=== PATIENT | male | born 1965 | race Caucasian/White ===

== ENCOUNTER 2017-05-16 20:23 | Inpatient (IN) | payer MEDICAID, OTHER ==
[2017-05-16 20:23] VITALS: BMI 21.5
[2017-05-16] MEDS ORDERED: Sodium Chloride 0.9% 1,000 ML IV SCH ×2 (21:15→22:45)
[2017-05-16] MEDS ORDERED: Piperacillin/Tazobact 3.375 GM in Sodium Chloride 0.9% 100 ML IV STA (21:16)
--- NOTE | 2017-05-16 21:32 | ED PDOC ---
HPI: General Adult Time Seen by Provider: 05/16/17 20:57 Chief Complaint (Nursing): ENT Problem Chief Complaint (Provider): Nose infection History Per: Patient History/Exam Limitations: no limitations Onset/Duration Of Symptoms: Days (2 weeks) Have you had recent travel within the past 21 days to any of the following countries: [place], [place], [place] or [place]?: No Current Symptoms Are (Timing): Still Present Additional Complaint(s): For 2 weeks pt. noted an itch on forehead, lower lip left, left nostril. He has been itching it and developed pain and numbness to the area. Pt. neighbor saw him and noted part of nostril missing on left. Has diabetes and takes oral meds for it. Past Medical History Reviewed: Nursing Documentation, Vital Signs Vital Signs: Last Vital Signs Temp 99.6 F 05/16/17 20:39 Pulse 97 H 05/16/17 22:06 Resp 19 05/16/17 22:06 BP 156/78 H 05/16/17 22:06 Pulse Ox 98 05/16/17 22:06 - Medical History PMH: Anemia, Diabetes, HTN Denies: HIV, Chronic Kidney Disease - Surgical History Other surgeries: b/l bka amputations - Family History Family History: States: Unknown Family Hx - Living Arrangements Living Arrangements: Alone - Social History Current smoker - smoking cessation education provided: No Alcohol: None Drugs: Denies - Home Medications Home Medications: Ambulatory Orders Medication Instructions Recorded Aspirin [Ecotrin] 81 mg PO DAILY 05/16/17 Enalapril Maleate [Vasotec] 20 mg PO BID 05/16/17 MetFORMIN [glucoPHAGE] 1,000 mg PO BID 05/16/17 - Allergies Allergies/Adverse Reactions: Allergies Allergy/AdvReac Type Severity Reaction Status Date / Time No Known Allergies Allergy Verified 09/05/15 14:40 Review of Systems ROS Statement: Except As Marked, All Systems Reviewed And Found Negative Constitutional: Positive for: Fever ENT: Positive for: Nose Pain, Nose Discharge, Mouth Pain Neurological: Positive for: Numbness, Headache Physical Exam - Reviewed Nursing Documentation Reviewed: Yes Vital Signs Reviewed: Yes - Physical Exam Appears: Positive for: No Acute Distress Head Exam: Positive for: ATRAUMATIC. Negative for: NORMAL INSPECTION (left scap with 2 ulcerations 2cm diameter and 1cm diameter; tender; no fluctuance) Skin: Positive for: Normal Color, Warm, DRY Eye Exam: Positive for: EOMI, Normal appearance, PERRL ENT: Positive for: Nasal Congestion, Other (L nostril missing; erythema of nose ; purulent dc noted internal of nose L; left lower lip ulcerated and missing; younger yellow dc; tender mild) Neck: Positive for: Normal, Painless ROM Cardiovascular/Chest: Positive for: Regular Rate, Rhythm Respiratory: Positive for: CNT, Normal Breath Sounds Gastrointestinal/Abdominal: Positive for: Normal Exam, Bowel Sounds, Soft. Negative for: Tenderness Back: Positive for: Normal Inspection. Negative for: L CVA Tenderness, R CVA Tenderness Extremity: Positive for: Other (b/l bka). Negative for: Pedal Edema Neurologic/Psych: Positive for: Alert, Oriented - Laboratory Results Result Diagrams: 05/16/17 21:54 05/16/17 21:54 Interpretation Of Abn Labs: 12.9 wbc, 2.3 lactate - ECG ECG: Positive for: Interpreted By Me, Viewed By Me ECG Rhythm: Positive for: Normal QRS, Normal ST Segment, Sinus Rhythm O2 Sat by Pulse Oximetry: 99 Pulse Ox Interpretation: Normal - Radiology X-Ray: Interpreted by Me, Viewed By Me X-Ray Interpretation: No Acute Disease - Progress ED Course And Treament: 2314: Stable. Spoke with Dr. French. Will admit for IV antibiotics and further eval/tx. 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 This is because of the severity of symptoms shown, intensity of services needed, and/or the medical risk in this patient being treated as an outpatient.
[2017-05-16 21:47] LABS: VENOUS BLOOD GAS BASE EXCESS 1.5 mmol/L (0.0-2.0); VENOUS BLOOD GAS PCO2 39 mmHg (40-60); VENOUS BLOOD GAS PO2 52 mm/Hg (30-55); VENOUS BLOOD PH 7.43 (7.32-7.43)
[2017-05-16 22:04] LABS: BASO # 0.1 K/uL (0.0-0.2); BASO % 0.6 % (0.0-2.0); EOS # 0.5 K/uL (0.0-0.7); EOS % 3.9 % (0.0-4.0); HEMOGLOBIN 11.6 g/dL (12.0-18.0); LYMPH % 15.5 % (20.0-40.0); MEAN CELL VOLUME 84.3 fl (80.0-94.0); MEAN CORPUSCULAR HEMOGLOBIN 27.3 pg (27.0-31.0); MEAN CORPUSCULAR HGB CONC 32.4 g/dL (33.0-37.0); MEAN PLATELET VOLUME 9.1 fl (7.2-11.7); MONO % 7.6 % (0.0-10.0); NEUT # 9.3 K/uL (1.8-7.0); NEUT % 72.4 % (50.0-75.0); RBC 4.25 Mil/uL (4.40-5.90); RED CELL DISTRIBUTION WIDTH 13.9 % (11.5-14.5); WHITE BLOOD COUNT 12.9 K/uL (4.8-10.8)
[2017-05-16 22:09] LABS: ALB/GLOB RATIO 0.9 (1.0-2.1); ALBUMIN 3.9 g/dL (3.5-5.0); ALT/SGPT 17 U/L (21-72); AST/SGOT 17 U/L (17-59); BLOOD UREA NITROGEN 16 mg/dl (9-20); CALCIUM 9.5 mg/dL (8.4-10.2); GFR AFRICAN-AMERICAN > 60; GFR NON-AFRICAN AMERICAN > 60; MAGNESIUM 1.7 MG/DL (1.6-2.3)
[2017-05-16] MEDS ORDERED: Piperacillin/Tazobact 3.375 gm Inj IVPB ONE (22:14)
[2017-05-16 22:17] LABS: INR 1.1 (0.9-1.2)
[2017-05-16 22:18] LABS: PARTIAL THROMBOPLASTIN TIME 35.5 Seconds (25.6-37.1)
[2017-05-16] MEDS ORDERED: Oxycodone/Acetaminophen 5/325 mg Tab PO PRN (22:35)
[2017-05-16] MEDS ORDERED: Sodium Chloride 0.9% 50 ML IV ONE (22:39)
[2017-05-16] MEDS ORDERED: Iohexol 300 100 ML IJ ONE (22:39)
--- NOTE | 2017-05-16 23:01 | CP.PCM.HP ---
History of Present Illness - History of Present Illness History of Present Illness: CC: cellulitis of face with erosion into nose History via staff in [place]; patient poor historian HPI: This is a 51 y/o male with MHx significant for DM2, HTN, and HLD who comes in with cellulitis of head and face with erosion into nasal cartilage. He came in because his neighbor noticed the wounds on his face. Patient states he has had itching and inflammation of the face as well as f/c for the past 2 weeks. Denies n/v/d. ROS: 14 systems reviewed, negative other than HPI MHx: DM2, HTN, HLD SHx: b/l BKA Allergies: NKDA Medications: As per med rec Family Hx: Reviewed, no relevant findings Social Hx: Lives alone, no tobacco, no EtOH Present on Admission - Present on Admission Any Indicators Present on Admission: No Past Patient History - Past Medical History & Family History Past Medical History?: Yes - Past Social History Smoking Status: Never Smoked - CARDIAC Hx Hypertension: Yes - PULMONARY Hx Respiratory Disorders: No - NEUROLOGICAL Hx Neurological Disorder: No - HEENT Hx HEENT Problems: No - RENAL Hx Chronic Kidney Disease: No - ENDOCRINE/METABOLIC Hx Diabetes Mellitus Type 2: Yes - HEMATOLOGICAL/ONCOLOGICAL Hx Anemia: Yes Hx Human Immunodeficiency Virus (HIV): No - INTEGUMENTARY Other/Comment: Ulcer right foot - MUSCULOSKELETAL/RHEUMATOLOGICAL Hx Osteomyelitis: Yes - GASTROINTESTINAL Hx Gastrointestinal Disorders: No - GENITOURINARY/GYNECOLOGICAL Hx Genitourinary Disorders: No - PSYCHIATRIC Hx Substance Use: No - SURGICAL HISTORY Hx Amputation: Yes (Bilateral BKA) - ANESTHESIA Hx Anesthesia: Yes Hx Anesthesia Reactions: No Hx Malignant Hyperthermia: No Meds Allergies/Adverse Reactions: Allergies Allergy/AdvReac Type Severity Reaction Status Date / Time No Known Allergies Allergy Verified 09/05/15 14:40 Physical Exam - Constitutional Appears: Unkempt - Head Exam Additional comments: Patient with excoriations of scalp, missing L side of nose and part of L lip; redness of face, no purulent drainage - Eye Exam Eye Exam: EOMI, PERRL - ENT Exam ENT Exam: Mucous Membranes Dry - Neck Exam Neck exam: Positive for: Full Rom - Respiratory Exam Respiratory Exam: Clear to Auscultation Bilateral, NORMAL BREATHING PATTERN - Cardiovascular Exam Cardiovascular Exam: REGULAR RHYTHM, +S1, +S2 - GI/Abdominal Exam GI & Abdominal Exam: Normal Bowel Sounds, Soft - Extremities Exam Additional comments: b/l amputations - Neurological Exam Neurological exam: Alert, CN II-XII Intact, Oriented x3 - Psychiatric Exam Psychiatric exam: Normal Affect, Normal Mood - Skin Skin Exam: Dry, Warm Results - Vital Signs Recent Vital Signs: Last Vital Signs Temp 99.6 F 05/16/17 20:39 Pulse 97 H 05/16/17 22:06 Resp 19 05/16/17 22:06 BP 156/78 H 05/16/17 22:06 Pulse Ox 99 05/16/17 22:51 - Labs Result Diagrams: 05/16/17 21:54 05/16/17 21:54 - Imaging and Cardiology CT scan - head Status: Pending Assessment & Plan (1) Severe sepsis Assessment and Plan: 51 y/o male with cellulitis of face with chondritis and erosion of areas of nose /face and scalp and sepsis. 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
[2017-05-17] MEDS: Piperacillin/Tazobact 3.375 GM in Sodium Chloride 0.9% 100 ML IVPB SCH ×2 (03:52→09:16)
[2017-05-17 03:57] LABS: SQUAMOUS EPITHIAL < 1 /hpf (0-5); URINE BACTERIA MOD (<OCC); URINE BILIRUBIN NEGATIVE (NEGATIVE); URINE BLOOD SMALL (NEGATIVE); URINE CLARITY CLOUDY (Clear); URINE COLOR YELLOW (YELLOW); URINE GLUCOSE (UA) NEG (Normal); URINE HYALINE CAST 0-2 /hpf (0-2); URINE LEUKOCYTE ESTERASE LARGE Leu/uL (Negative); URINE NITRATE NEGATIVE (NEGATIVE); URINE PROTEIN 100 mg/dL (NEGATIVE); URINE UROBILINOGEN 0.2-1.0 mg/dL (0.2-1.0)
[2017-05-17] MEDS: Insulin Lispro (humaLOG) 100 Units/ml Inj SC SCH ×4 (08:37→22:04)
--- NOTE | 2017-05-17 08:37 | RAD ---
HISTORY: Sepsis Patient COMPARISON: Chest x-ray performed 09/07/15 TECHNIQUE: Chest, one view. FINDINGS: Examination limited by habitus and hypoinflation. LUNGS: No focal consolidation. Please note that chest x-ray has limited sensitivity for the detection of pulmonary masses. PLEURA: No significant pleural effusion identified. No definite pneumothorax . CARDIOVASCULAR: Heart size appears top normal. OSSEOUS STRUCTURES: Degenerative changes. VISUALIZED UPPER ABDOMEN: Unremarkable. OTHER FINDINGS: None. IMPRESSION: No focal consolidation, significant pleural effusion, or definite pneumothorax identified. Additional findings as above.
--- NOTE | 2017-05-17 08:42 | CT ---
PROCEDURE: CT HEAD WITHOUT CONTRAST. HISTORY: headache COMPARISON: None available. TECHNIQUE: Axial computed tomography images were obtained through the head/brain without intravenous contrast. Radiation dose: Total exam DLP = 882.65 mGy-cm. This CT exam was performed using one or more of the following dose reduction techniques: Automated exposure control, adjustment of the mA and/or kV according to patient size, and/or use of iterative reconstruction technique. FINDINGS: HEMORRHAGE: No intracranial hemorrhage. BRAIN: No mass effect or edema. Dense intracranial atherosclerotic calcifications. No atrophy or chronic microvascular ischemic changes. VENTRICLES: No hydrocephalus. CALVARIUM: Unremarkable. PARANASAL SINUSES: Unremarkable as visualized. No significant inflammatory changes. MASTOID AIR CELLS: Unremarkable as visualized. No inflammatory changes. OTHER FINDINGS: None. IMPRESSION: No acute intracranial pathology identified. Preliminary impression was provided by virtual radiologic.
--- NOTE | 2017-05-17 08:53 | CP.PCM.PN ---
Subjective - Date & Time of Evaluation Date of Evaluation: 05/17/17 Time of Evaluation: 08:00 - Subjective Subjective: No fever slight tingling pain on lips no CP no SOB no cough denies CP no ROBERTS no neck rigidity no abd pain Objective - Vital Signs/Intake and Output Vital Signs (last 24 hours): Temp Pulse Resp BP Pulse Ox 97.5 F L 84 18 166/84 H 99 05/17/17 08:05 05/17/17 08:37 05/17/17 08:05 05/17/17 08:37 05/17/17 08:05 - Medications Medications: Current Medications Acetaminophen (Tylenol 325mg Tab) 650 mg PO Q6 PRN PRN Reason: Pain, Mild (1-3) Acetaminophen (Tylenol 325mg Tab) 650 mg PO Q6 PRN PRN Reason: Fever >100.4 F Aspirin (Ecotrin) 81 mg PO DAILY [facility] Last Admin: 05/17/17 08:38 Dose: 81 mg Enalapril Maleate (Vasotec) 20 mg PO BID [facility] Last Admin: 05/17/17 08:38 Dose: 20 mg Escitalopram Oxalate (Lexapro) 10 mg PO DAILY [facility] Last Admin: 05/17/17 08:38 Dose: 10 mg Sodium Chloride (Sodium Chloride 0.9%) 1,000 mls @ 500 mls/hr IV .Q2H [facility] Last Admin: 05/16/17 22:17 Dose: 500 mls/hr Vancomycin HCl 1 gm/ Sodium (Chloride) 250 mls @ 166.667 mls/hr IVPB Q12 [facility] Last Admin: 05/17/17 08:43 Dose: 166.667 mls/hr Piperacillin Sod/Tazobactam (Sod 3.375 gm/ Sodium Chloride) 100 mls @ 100 mls/ hr IVPB Q6 [facility] Last Admin: 05/17/17 03:52 Dose: 100 mls/hr Insulin Human Lispro (Humalog) 0 units SC ACHS [facility] PRN Reason: Protocol Last Admin: 05/17/17 08:37 Dose: Not Given Metoprolol Succinate (Toprol Xl) 25 mg PO DAILY [facility] Oxycodone/Acetaminophen (Percocet 5/325 Mg Tab) 1 tab PO Q4 PRN PRN Reason: Pain, moderate (4-7) Stop: 05/19/17 22:36 Last Admin: 05/17/17 00:28 Dose: 1 tab - Labs Labs: PT 12.0 Seconds (9.8-13.1) 05/16/17 21:54 INR 1.1 (0.9-1.2) 05/16/17 21:54 APTT 35.5 Seconds (25.6-37.1) 05/16/17 21:54 - Constitutional Appears: No Acute Distress, Chronically Ill - Head Exam Head Exam: NORMOCEPHALIC Additional comments: scalp lesion - Eye Exam Eye Exam: EOMI, Normal appearance, PERRL Pupil Exam: NORMAL ACCOMODATION - ENT Exam ENT Exam: Mucous Membranes Moist, Normal External Ear Exam Additional comments: left nose necrotic ulcer lip blisters - Neck Exam Neck Exam: Full ROM. absent: Meningismus - Respiratory Exam Respiratory Exam: NORMAL BREATHING PATTERN. absent: Rhonchi, Wheezes, Respiratory Distress - Cardiovascular Exam Cardiovascular Exam: REGULAR RHYTHM, +S1, +S2 - GI/Abdominal Exam GI & Abdominal Exam: Soft, Normal Bowel Sounds. absent: Tenderness - Extremities Exam Additional comments: bilateral BKA - Back Exam Back Exam: absent: CVA tenderness (L), CVA tenderness (R) - Neurological Exam Neurological Exam: Alert, Awake, CN II-XII Intact, Oriented x3 - Psychiatric Exam Psychiatric exam: Flat Affect, Normal Mood - Skin Skin Exam: Dry, Normal Color, Warm Assessment and Plan (1) Sepsis Status: Acute (2) Facial cellulitis Status: Acute (3) Ulcer of nose Status: Acute (4) DM2 (diabetes mellitus, type 2) Status: Chronic (5) S/P BKA (below knee amputation) bilateral Status: Chronic (6) Hypertension, uncontrolled Status: Acute - Assessment and Plan (Free Text) Assessment: 51 y/o gent with Hx of HTN, DM, came in bec of facial and scalp lesion and nasal ulceration w/c started 2 wks prior to admission. (1) Sepsis , likely sec to facial infection Blood c/s Pt started on IV Zosyn and Vanco noted that all lesions seem to be on the left side , with nasal ulceration and necrosis, some facial erythema, also noted lip blisters Unclear if this could be Herpetic Eczema ( lesion on one side, blisters of lips ) will add one dose of IV Acyclovir until ID evaluates pt ID consult _ Dr Reyes (2) Facial cellulitis Status: Acute as above (3) Ulcer of nose, necrotic Urine TOX RPR HIV test (4) DM2 (diabetes mellitus, type 2) controlled Status: Chronic accucheck with coverage (5) S/P BKA (below knee amputation) bilateral Status: Chronic (6) Hypertension, uncontrolled Status: Acute cont vasotec d/c [place] start Metoprolol
[2017-05-17] MEDS ORDERED: Metoprolol Succinate 25 mg XL Tab PO SCH (09:00)
[2017-05-17 10:25] LABS: MEAN CELL VOLUME 83.7 fl (80.0-94.0); MEAN CORPUSCULAR HEMOGLOBIN 28.3 pg (27.0-31.0); MEAN CORPUSCULAR HGB CONC 33.8 g/dL (33.0-37.0); RBC 3.91 Mil/uL (4.40-5.90); RED CELL DISTRIBUTION WIDTH 13.6 % (11.5-14.5); WHITE BLOOD COUNT 10.3 K/uL (4.8-10.8)
[2017-05-17 10:47] LABS: BLOOD UREA NITROGEN 13 mg/dl (9-20); CALCIUM 9.3 mg/dL (8.4-10.2); GFR AFRICAN-AMERICAN > 60; GFR NON-AFRICAN AMERICAN > 60
--- NOTE | 2017-05-17 11:10 | CP.PCM.CON ---
History of Present Illness - History of Present Illness History of Present Illness: Infectious Disease Consult note- asked to see this patient today at the request of HPI- PAtient is a 51 year old male with pmh of DM 2, HTN, b/l BKA from a year ago who was admitted with ? cellulitis /blisters on his nose and lips and left nasal cartilage erosion. Patient explains that he started to develops pimple like lesions about 2 weeks ago on the left side of his nose and lips and since they were itchy he scratched them alot and it got worse progressively and finally his neighbor advised him to come to ED sicne his wounds were getting worse. he denies any fever or chills, denies any injury to his nose, denies using any drugs , denies snorting anything. denies having any cold sores or fever blisters in the past. He denies any cough or sob. He sattes he feels slightly better since admission . MHx: DM2, HTN, HLD SHx: b/l BKA Allergies: NKDA Medications: As per med rec Family Hx: Reviewed, no relevant findings Social Hx: Lives alone, no tobacco, no EtOH, denies any drug use Review of Systems - Review of Systems Review of Systems: ROS- denies any fever or chills, denies any cough, denies any ROBERTS, denies any visual changes, denies any sore throat, denies any sob, denies any chest pain, denies any abd. pain, denies any n/v, denies any dysurea, denies any diarrhea Left nose and left lip blisters progressively worsened in past 2 weeks with itching and erythema and swelling. denies any injury to the area denies any sick contacts denies any animal exposure Past Patient History - Past Medical History & Family History Past Medical History?: Yes - Past Social History Smoking Status: Never Smoked Alcohol: None Drugs: Denies Home Situation {Lives}: With Family - CARDIAC Hx Hypertension: Yes - PULMONARY Hx Respiratory Disorders: No - NEUROLOGICAL Hx Neurological Disorder: No - HEENT Hx HEENT Problems: No - RENAL Hx Chronic Kidney Disease: No - ENDOCRINE/METABOLIC Hx Diabetes Mellitus Type 2: Yes - HEMATOLOGICAL/ONCOLOGICAL Hx Anemia: Yes - INTEGUMENTARY Hx Dermatological Problems: Yes Hx Cellulitis: Yes Other/Comment: Ulcer right foot - MUSCULOSKELETAL/RHEUMATOLOGICAL Hx Falls: No Hx Osteomyelitis: Yes - GASTROINTESTINAL Hx Gastrointestinal Disorders: No - GENITOURINARY/GYNECOLOGICAL Hx Genitourinary Disorders: No - PSYCHIATRIC Hx Depression: Yes Hx Substance Use: No - SURGICAL HISTORY Hx Amputation: Yes (Bilateral BKA) - ANESTHESIA Hx Anesthesia: Yes Hx Anesthesia Reactions: No Hx Malignant Hyperthermia: No Meds Allergies/Adverse Reactions: Allergies Allergy/AdvReac Type Severity Reaction Status Date / Time No Known Allergies Allergy Verified 09/05/15 14:40 - Medications Medications: Current Medications Acetaminophen (Tylenol 325mg Tab) 650 mg PO Q6 PRN PRN Reason: Pain, Mild (1-3) Acetaminophen (Tylenol 325mg Tab) 650 mg PO Q6 PRN PRN Reason: Fever >100.4 F Aspirin (Ecotrin) 81 mg PO DAILY [facility] [place] Last Admin: 05/17/17 08:38 Dose: 81 mg Enalapril Maleate (Vasotec) 20 mg PO BID [facility] [place] Last Admin: 05/17/17 08:38 Dose: 20 mg Escitalopram Oxalate (Lexapro) 10 mg PO DAILY [facility] [place] Last Admin: 05/17/17 08:38 Dose: 10 mg Sodium Chloride (Sodium Chloride 0.9%) 1,000 mls @ 500 mls/hr IV .Q2H [facility] [place] Last Admin: 05/16/17 22:17 Dose: 500 mls/hr Vancomycin HCl 1 gm/ Sodium (Chloride) 250 mls @ 166.667 mls/hr IVPB Q12 [facility] [place] Last Admin: 05/17/17 08:43 Dose: 166.667 mls/hr Piperacillin Sod/Tazobactam (Sod 3.375 gm/ Sodium Chloride) 100 mls @ 100 mls/ hr IVPB Q6 [facility] [place] Last Admin: 05/17/17 09:16 Dose: 100 mls/hr Insulin Human Lispro (Humalog) 0 units SC ACHS [facility] [place] PRN Reason: Protocol Last Admin: 05/17/17 08:37 Dose: Not Given Metoprolol Succinate (Toprol Xl) 25 mg PO DAILY [facility] [place] Last Admin: 05/17/17 09:19 Dose: 25 mg Oxycodone/Acetaminophen (Percocet 5/325 Mg Tab) 1 tab PO Q4 PRN PRN Reason: Pain, moderate (4-7) Stop: 05/19/17 22:36 Last Admin: 05/17/17 00:28 Dose: 1 tab Physical Exam - Constitutional Appears: No Acute Distress - Head Exam Head Exam: ATRAUMATIC - Eye Exam Eye Exam: EOMI, PERRL - ENT Exam Additional comments: edematous lips with left side of the lip with extensive vesicualr lesions mostly dry with slight yellow discharge on top left nasal cartilage eroded with dried vesicular lesions with superimposed erythema, no active d/c slight edema in the facial region surrounding the left nasal area with minimal erythema - Neck Exam Neck exam: Positive for: Full Rom - Respiratory Exam Respiratory Exam: Clear to Auscultation Bilateral, NORMAL BREATHING PATTERN - Cardiovascular Exam Cardiovascular Exam: RRR, +S1, +S2 - GI/Abdominal Exam GI & Abdominal Exam: Normal Bowel Sounds, Soft Additional comments: NT, ND - Extremities Exam Additional comments: b/l BKA - Neurological Exam Neurological exam: Alert, Oriented x3 Results - Vital Signs Recent Vital Signs: Last Vital Signs Temp 97.5 F L 05/17/17 08:05 Pulse 84 05/17/17 09:19 Resp 18 05/17/17 08:05 BP 166/84 H 05/17/17 09:19 Pulse Ox 99 05/17/17 08:05 - Labs Result Diagrams: 05/17/17 08:30 05/17/17 08:30 Labs: Laboratory Results - last 24 hr 05/16/17 05/17/17 05/17/17 23:02 01:38 05:29 WBC RBC Hgb Hct MCV MCH MCHC RDW Plt Count Sodium Potassium Chloride Carbon Dioxide Anion Gap BUN Creatinine Est GFR ( Amer) Est GFR (Non-Af Amer) POC Glucose (mg/dL) 119 H Random Glucose Lactic Acid 1.9 Calcium Urine Color Yellow Urine Clarity Cloudy Urine pH 6.0 Ur Specific [place] 1.014 Urine Protein 100 Urine Glucose (UA) Neg Urine Ketones Negative Urine Blood Small Urine Nitrate Negative Urine Bilirubin Negative Urine Urobilinogen 0.2-1.0 Ur Leukocyte Esterase Large Urine RBC (Auto) 8 H Urine Microscopic WBC 159 H Ur Squamous Epith Cells < 1 Urine Bacteria Mod H Hyaline Casts 0-2 05/17/17 05/17/17 08:30 08:30 WBC 10.3 RBC 3.91 L Hgb 11.0 L Hct 32.7 L MCV 83.7 MCH 28.3 MCHC 33.8 RDW 13.6 Plt Count 309 Sodium 139 Potassium 4.6 Chloride 104 Carbon Dioxide 26 Anion Gap 14 BUN 13 Creatinine 0.7 L Est GFR ( Amer) > 60 Est GFR (Non-Af Amer) > 60 POC Glucose (mg/dL) Random Glucose 126 H Lactic Acid Calcium 9.3 Urine Color Urine Clarity Urine pH Ur Specific [place] Urine Protein Urine Glucose (UA) Urine Ketones Urine Blood Urine Nitrate Urine Bilirubin Urine Urobilinogen Ur Leukocyte Esterase Urine RBC (Auto) Urine Microscopic WBC Ur Squamous Epith Cells Urine Bacteria Hyaline Casts Laboratory Results - last 72 hr 05/16/17 05/16/17 05/16/17 21:36 21:40 21:54 WBC 12.9 H D RBC 4.25 L Hgb 11.6 L Hct 35.8 MCV 84.3 MCH 27.3 MCHC 32.4 L RDW 13.9 Plt Count 332 MPV 9.1 Neut % (Auto) 72.4 Lymph % (Auto) 15.5 L [place] % (Auto) 7.6 Eos % (Auto) 3.9 Baso % (Auto) 0.6 Neut # 9.3 H Lymph # 2.0 [place] # 1.0 H Eos # 0.5 Baso # 0.1 PT INR APTT pO2 52 VBG pH 7.43 VBG pCO2 39 L VBG HCO3 25.8 VBG Total CO2 27.1 VBG O2 Sat (Calc) 92.1 H VBG Base Excess 1.5 VBG Potassium 4.8 Sodium 136.0 Chloride 104.0 Glucose 180 H Lactate 2.3 H FiO2 21.0 Potassium Carbon Dioxide Anion Gap BUN Creatinine Est GFR ( Amer) Est GFR (Non-Af Amer) POC Glucose (mg/dL) 178 H Random Glucose Lactic Acid Calcium Phosphorus Magnesium Total Bilirubin AST ALT Alkaline Phosphatase Troponin I Total Protein Albumin Globulin Albumin/Globulin Ratio Venous Blood Potassium 4.8 Urine Color Urine Clarity Urine pH Ur Specific [place] Urine Protein Urine Glucose (UA) Urine Ketones Urine Blood Urine Nitrate Urine Bilirubin Urine Urobilinogen Ur Leukocyte Esterase Urine RBC (Auto) Urine Microscopic WBC Ur Squamous Epith Cells Urine Bacteria Hyaline Casts Urine Opiates Screen Urine Methadone Screen Ur Barbiturates Screen Ur Phencyclidine Scrn Ur Amphetamines Screen U Benzodiazepines Scrn U Oth Cocaine Metabols U Cannabinoids Screen 05/16/17 05/16/17 05/16/17 21:54 21:54 23:02 WBC RBC Hgb Hct MCV MCH MCHC RDW Plt Count MPV Neut % (Auto) Lymph % (Auto) [place] % (Auto) Eos % (Auto) Baso % (Auto) Neut # Lymph # [place] # Eos # Baso # PT 12.0 INR 1.1 APTT 35.5 pO2 VBG pH VBG pCO2 VBG HCO3 VBG Total CO2 VBG O2 Sat (Calc) VBG Base Excess VBG Potassium Sodium 138 Chloride 104 Glucose Lactate FiO2 Potassium 4.8 Carbon Dioxide 23 Anion Gap 16 BUN 16 Creatinine 0.8 Est GFR ( Amer) > 60 Est GFR (Non-Af Amer) > 60 POC Glucose (mg/dL) Random Glucose 178 H Lactic Acid Calcium 9.5 Phosphorus 3.3 Magnesium 1.7 Total Bilirubin 0.2 AST 17 D ALT 17 L D Alkaline Phosphatase 115 Troponin I < 0.0120 Total Protein 8.4 H Albumin 3.9 Globulin 4.4 H Albumin/Globulin Ratio 0.9 L Venous Blood Potassium Urine Color Yellow Urine Clarity Cloudy Urine pH 6.0 Ur Specific [place] 1.014 Urine Protein 100 Urine Glucose (UA) Neg Urine Ketones Negative Urine Blood Small Urine Nitrate Negative Urine Bilirubin Negative Urine Urobilinogen 0.2-1.0 Ur Leukocyte Esterase Large Urine RBC (Auto) 8 H Urine Microscopic WBC 159 H Ur Squamous Epith Cells < 1 Urine Bacteria Mod H Hyaline Casts 0-2 Urine Opiates Screen Urine Methadone Screen Ur Barbiturates Screen Ur Phencyclidine Scrn Ur Amphetamines Screen U Benzodiazepines Scrn U Oth Cocaine Metabols U Cannabinoids Screen 05/17/17 05/17/17 05/17/17 01:38 05:29 08:30 WBC 10.3 RBC 3.91 L Hgb 11.0 L Hct 32.7 L MCV 83.7 MCH 28.3 MCHC 33.8 RDW 13.6 Plt Count 309 MPV Neut % (Auto) Lymph % (Auto) [place] % (Auto) Eos % (Auto) Baso % (Auto) Neut # Lymph # [place] # Eos # Baso # PT INR APTT pO2 VBG pH VBG pCO2 VBG HCO3 VBG Total CO2 VBG O2 Sat (Calc) VBG Base Excess VBG Potassium Sodium Chloride Glucose Lactate FiO2 Potassium Carbon Dioxide Anion Gap BUN Creatinine Est GFR ( Amer) Est GFR (Non-Af Amer) POC Glucose (mg/dL) 119 H Random Glucose Lactic Acid 1.9 Calcium Phosphorus Magnesium Total Bilirubin AST ALT Alkaline Phosphatase Troponin I Total Protein Albumin Globulin Albumin/Globulin Ratio Venous Blood Potassium Urine Color Urine Clarity Urine pH Ur Specific [place] Urine Protein Urine Glucose (UA) Urine Ketones Urine Blood Urine Nitrate Urine Bilirubin Urine Urobilinogen Ur Leukocyte Esterase Urine RBC (Auto) Urine Microscopic WBC Ur Squamous Epith Cells Urine Bacteria Hyaline Casts Urine Opiates Screen Urine Methadone Screen Ur Barbiturates Screen Ur Phencyclidine Scrn Ur Amphetamines Screen U Benzodiazepines Scrn U Oth Cocaine Metabols U Cannabinoids Screen 05/17/17 05/17/17 05/17/17 08:30 10:00 11:14 WBC RBC Hgb Hct MCV MCH MCHC RDW Plt Count MPV Neut % (Auto) Lymph % (Auto) [place] % (Auto) Eos % (Auto) Baso % (Auto) Neut # Lymph # [place] # Eos # Baso # PT INR APTT pO2 VBG pH VBG pCO2 VBG HCO3 VBG Total CO2 VBG O2 Sat (Calc) VBG Base Excess VBG Potassium Sodium 139 Chloride 104 Glucose Lactate FiO2 Potassium 4.6 Carbon Dioxide 26 Anion Gap 14 BUN 13 Creatinine 0.7 L Est GFR ( Amer) > 60 Est GFR (Non-Af Amer) > 60 POC Glucose (mg/dL) 143 H Random Glucose 126 H Lactic Acid Calcium 9.3 Phosphorus Magnesium Total Bilirubin AST ALT Alkaline Phosphatase Troponin I Total Protein Albumin Globulin Albumin/Globulin Ratio Venous Blood Potassium Urine Color Urine Clarity Urine pH Ur Specific [place] Urine Protein Urine Glucose (UA) Urine Ketones Urine Blood Urine Nitrate Urine Bilirubin Urine Urobilinogen Ur Leukocyte Esterase Urine RBC (Auto) Urine Microscopic WBC Ur Squamous Epith Cells Urine Bacteria Hyaline Casts Urine Opiates Screen Positive H Urine Methadone Screen Negative Ur Barbiturates Screen Negative Ur Phencyclidine Scrn Negative Ur Amphetamines Screen Negative U Benzodiazepines Scrn Negative U Oth Cocaine Metabols Negative U Cannabinoids Screen Negative Creator : Selena Mcgee MD Dictator : Selena Mcgee MD Docking Pilot : Warehouse Receiving Clerk : Selena Mcgee MD Approver2 : Report Date : 05/17/2017 08:40:45 My Comment : PROCEDURE: CT HEAD WITHOUT CONTRAST. HISTORY: headache COMPARISON: None available. TECHNIQUE: Axial computed tomography images were obtained through the head/brain without intravenous contrast. Radiation dose: Total exam DLP = 882.65 mGy-cm. This CT exam was performed using one or more of the following dose reduction techniques: Automated exposure control, adjustment of the mA and/or kV according to patient size, and/or use of iterative reconstruction technique. FINDINGS: HEMORRHAGE: No intracranial hemorrhage. BRAIN: No mass effect or edema. Dense intracranial atherosclerotic calcifications. No atrophy or chronic microvascular ischemic changes. VENTRICLES: No hydrocephalus. CALVARIUM: Unremarkable. PARANASAL SINUSES: Unremarkable as visualized. No significant inflammatory changes. MASTOID AIR CELLS: Unremarkable as visualized. No inflammatory changes. OTHER FINDINGS: None. IMPRESSION: No acute intracranial pathology identified. Preliminary impression was provided by virtual radiologic. Accession No. : [id number] Patient Name / ID : WILLOW SPAIN / [id number] Exam Date : 05/16/2017 22:45:59 ( Approved ) Study Comment : Sex / Age : M / 51Y Creator : Chad Quinonez MD Dictator : Chad Quinonez MD Docking Pilot : Warehouse Receiving Clerk : Chad Quinonez MD Approver2 : Report Date : 05/17/2017 12:32:19 My Comment : PROCEDURE: CT maxillofacial skeleton dated 05/16/2017 HISTORY: Cellulitis COMPARISON: Comparison made with concurrent CT scan brain TECHNIQUE: Contiguous helical/transaxial CT images of the maxillofacial bones were obtained following administration of IV contrast. Coronal and sagittal reformats were generated. Intravenous contrast Dose: 95 cc Omnipaque contrast Radiation dose: Total exam DLP = 798.42 mGy-cm. This CT exam was performed using one or more of the following dose reduction techniques: Automated exposure control, adjustment of the mA and/or kV according to patient size, and/or use of iterative reconstruction technique. FINDINGS: The current study reveals what appears represent localized cellulitis involving soft tissues overlying the anterior maxilla are/upper lip left greater than right with extension superiorly to involve the soft tissues of the nose. . The changes as mentioned above appearing somewhat more localized in the left medial premaxillary region which could represent an localized organizing localized early phlegmon. No definitive drainable abscess collection or subcutaneous emphysema identified at this time. . . The overlying cortex and osseous structures of the maxilla and nasal bones appear intact without evidence of destructive changes. . Questionable mild soft tissue swelling greater than left lower lip right greater than left. . The visualized paranasal sinuses are well-developed and currently well-aerated. There are no fluid levels seen to suggest acute sinusitis or hemorrhage. Minimal mucosal thickening seen within both maxillary antra and to a lesser degree few ethmoid air cells. . The remaining visualized paranasal sinuses are well-developed and currently well-aerated. Mastoid air complexes are well-developed and all also well-aerated. Orbits and contents unremarkable. Globes intact and lenses appropriately located. There are no retrobulbar are hemorrhages or collections. Note made of a minor vascular calcifications of the carotid siphons Impression: There is localized cellulitis involving the soft tissues of medial premaxillary region on more so on the left with what may represent small localized early organizing phlegmon. No definitive drainable fluid collections or subcutaneous emphysema. No bony destructive changes. No evidence of acute paranasal sinusitis on. Questionable mild soft tissue swelling of the lower lip right greater than left. Preliminary report provided by overnight radiology service. Assessment & Plan (1) Facial cellulitis Status: Acute (2) Ulcer of nose Status: Acute (3) DM2 (diabetes mellitus, type 2) Status: Chronic - Assessment and Plan (Free Text) Assessment: A/P- 51 year old male with DM II, HTN presents with left facial cellulits and vesicualr lesion of the left lip and nose region with left nostril cartilage erosion . I suspect herpes labialis with superimposed staph infection of the lip and nasal region. afebrile normal wbc count maxilofacial CT report noted- report as per radiologist- There is localized cellulitis involving the soft tissues of medial premaxillary region on more so on the left with what may represent small localized early organizing phlegmon. No definitive drainable fluid collections or subcutaneous emphysema. No bony destructive changes. plan- check blood cx x 2 advise to apply zovirax ointment to the left lip and nostril vesicualr lesions. advise to start patietn on both IV vancomycin and zosyn pending further results. advise pt. to avoid touching and scratching his lip and nose. advise ENt evaluation as well. patient verbalizes full understanding of all above. all above d/w as well. Thank you for allowing me to take part in the care of this patient.
[2017-05-17 11:14] LABS: BARBITURATES, UR NEGATIVE (NEGATIVE); BENZODIAZEPINES, UR NEGATIVE (NEGATIVE); OPIATES, UR POSITIVE (NEGATIVE); PHENCYCLIDINE, UR NEGATIVE (NEGATIVE)
--- NOTE | 2017-05-17 12:33 | CT ---
PROCEDURE: CT maxillofacial skeleton dated 05/16/2017 HISTORY: Cellulitis COMPARISON: Comparison made with concurrent CT scan brain TECHNIQUE: Contiguous helical/transaxial CT images of the maxillofacial bones were obtained following administration of IV contrast. Coronal and sagittal reformats were generated. Intravenous contrast Dose: 95 cc Omnipaque contrast Radiation dose: Total exam DLP = 798.42 mGy-cm. This CT exam was performed using one or more of the following dose reduction techniques: Automated exposure control, adjustment of the mA and/or kV according to patient size, and/or use of iterative reconstruction technique. FINDINGS: The current study reveals what appears represent localized cellulitis involving soft tissues overlying the anterior maxilla are/upper lip left greater than right with extension superiorly to involve the soft tissues of the nose. . The changes as mentioned above appearing somewhat more localized in the left medial premaxillary region which could represent an localized organizing localized early phlegmon. No definitive drainable abscess collection or subcutaneous emphysema identified at this time. . . The overlying cortex and osseous structures of the maxilla and nasal bones appear intact without evidence of destructive changes. . Questionable mild soft tissue swelling greater than left lower lip right greater than left. . The visualized paranasal sinuses are well-developed and currently well-aerated. There are no fluid levels seen to suggest acute sinusitis or hemorrhage. Minimal mucosal thickening seen within both maxillary antra and to a lesser degree few ethmoid air cells. . The remaining visualized paranasal sinuses are well-developed and currently well-aerated. Mastoid air complexes are well-developed and all also well-aerated. Orbits and contents unremarkable. Globes intact and lenses appropriately located. There are no retrobulbar are hemorrhages or collections. Note made of a minor vascular calcifications of the carotid siphons Impression: There is localized cellulitis involving the soft tissues of medial premaxillary region on more so on the left with what may represent small localized early organizing phlegmon. No definitive drainable fluid collections or subcutaneous emphysema. No bony destructive changes. No evidence of acute paranasal sinusitis on. Questionable mild soft tissue swelling of the lower lip right greater than left. Preliminary report provided by overnight radiology service.
--- NOTE | 2017-05-17 13:47 | CARD ---
APPROVED REPORT EKG Measurement Heart [id number] <Conclusion> Normal sinus rhythm Normal ECG
[2017-05-17] MEDS: Piperacill/Tazo 3.375gm in Dex 3.375 GM/50 ML BAG IVPB SCH ×2 (16:04→21:41)
[2017-05-17] MEDS: Acyclovir 5% OINT 5 APPLIC/5 GM EXT SCH ×3 (16:07→21:43)
[2017-05-18] MEDS: Acyclovir 5% OINT 5 APPLIC/5 GM EXT SCH ×8 (00:54→21:48)
[2017-05-18] MEDS: Piperacill/Tazo 3.375gm in Dex 3.375 GM/50 ML BAG IVPB SCH ×4 (03:27→21:37)
[2017-05-18] MEDS: Insulin Lispro (humaLOG) 100 Units/ml Inj SC SCH ×4 (07:53→21:30)
[2017-05-18] MEDS: Metoprolol Succinate 50 mg XL Tab PO SCH (08:07)
--- NOTE | 2017-05-18 09:51 | CP.PCM.PN ---
Subjective - Date & Time of Evaluation Date of Evaluation: 05/08/17 Time of Evaluation: 09:30 - Subjective Subjective: Patient was seen and evaluated bedside. Feeling better. Hemodynamically stable, afebrile No acute issues overnight. Objective - Vital Signs/Intake and Output Vital Signs (last 24 hours): Temp Pulse Resp BP Pulse Ox 98.2 F 77 18 151/81 H 97 05/18/17 08:07 05/18/17 09:00 05/18/17 08:07 05/18/17 08:07 05/18/17 08:07 Intake and Output: 05/18/17 05/18/17 06:59 18:59 Intake Total 770 Output Total 600 Balance 170 - Medications Medications: Current Medications Acetaminophen (Tylenol 325mg Tab) 650 mg PO Q6 PRN PRN Reason: Pain, Mild (1-3) Acetaminophen (Tylenol 325mg Tab) 650 mg PO Q6 PRN PRN Reason: Fever >100.4 F Acyclovir (Zovirax) 800 mg PO Q8 [facility] Last Admin: 05/18/17 08:07 Dose: 800 mg Acyclovir (Zovirax 5% Oint) 1 applic EXT Q3 [facility] Last Admin: 05/18/17 09:11 Dose: 1 applic Aspirin (Ecotrin) 81 mg PO DAILY [facility] Last Admin: 05/18/17 08:08 Dose: 81 mg Enalapril Maleate (Vasotec) 20 mg PO BID [facility] Last Admin: 05/18/17 08:08 Dose: 20 mg Escitalopram Oxalate (Lexapro) 10 mg PO DAILY [facility] Last Admin: 05/18/17 08:08 Dose: 10 mg Vancomycin HCl 1 gm/ Sodium (Chloride) 250 mls @ 166.667 mls/hr IVPB Q12 [facility] Last Admin: 05/18/17 08:15 Dose: 166.667 mls/hr Piperacillin Sod/Tazobactam Sod (Zosyn 3.375 Gm Iv Premix) 3.375 gm in 50 mls @ 50 mls/hr IVPB Q6 [facility] Last Admin: 05/18/17 09:09 Dose: 50 mls/hr Insulin Human Lispro (Humalog) 0 units SC ACHS [facility] PRN Reason: Protocol Last Admin: 05/18/17 07:53 Dose: Not Given Metoprolol Succinate (Toprol Xl) 50 mg PO DAILY [facility] Last Admin: 05/18/17 08:07 Dose: 50 mg Oxycodone/Acetaminophen (Percocet 5/325 Mg Tab) 1 tab PO Q4 PRN PRN Reason: Pain, moderate (4-7) Stop: 05/19/17 22:36 Last Admin: 05/17/17 00:28 Dose: 1 tab - Labs Labs: 05/17/17 08:30 05/17/17 08:30 PT 12.0 Seconds (9.8-13.1) 05/16/17 21:54 INR 1.1 (0.9-1.2) 05/16/17 21:54 APTT 35.5 Seconds (25.6-37.1) 05/16/17 21:54 - Constitutional Appears: Non-toxic, No Acute Distress, Older Than Stated Age - Eye Exam Eye Exam: EOMI, PERRL Pupil Exam: NORMAL ACCOMODATION - ENT Exam ENT Exam: Mucous Membranes Moist (upper and lower lip vessicles and blisters), Normal Oropharynx Additional comments: left nostril erosion with vesiicles and blisters - Neck Exam Neck Exam: Normal Inspection - Respiratory Exam Respiratory Exam: Clear to Ausculation Bilateral, NORMAL BREATHING PATTERN. absent: Rhonchi, Wheezes - Cardiovascular Exam Cardiovascular Exam: REGULAR RHYTHM, RRR, +S1, +S2. absent: JVD - GI/Abdominal Exam GI & Abdominal Exam: Soft, Normal Bowel Sounds. absent: Distended, Guarding, Tenderness, Rebound - Rectal Exam Rectal Exam: Deferred - Extremities Exam Additional comments: bilateral BKA - Back Exam Back Exam: NORMAL INSPECTION - Neurological Exam Neurological Exam: Alert, CN II-XII Intact - Psychiatric Exam Psychiatric exam: Normal Affect, Normal Mood - Skin Skin Exam: Dry, Intact, Normal Color, Warm Assessment and Plan - Assessment and Plan (Free Text) Assessment: 51 y/o male with PMH of HTN, DM, s/p bilateral BKA presented with facial and scalp lesion and nasal ulceration that started 2 weeks prior to admission. 1. Sepsis , likely sec to facial infection Blood c/s with no growth Pt started on IV Zosyn and Vanco noted that all lesions seem to be on the left side , with nasal ulceration and necrosis, some facial erythema, also noted lip blisters Unclear if this could be Herpetic Eczema ( lesion on one side, blisters of lips )=. Will need to rule out Mucormycosis Started Acyclovir Follow up Ct sinuses ENt eval with Dr. Mclaughlin for tissue diagnosis and sinus eval ID consult _ Dr Reyes 2. Facial cellulitis Acute as above 3. Ulcer of nose, necrotic Urine TOX- positive for opioate RPR HIV test tissue for histopathology eval to rule out malignancy vs mucormycosis ENt eval CT of the sinuses 4 DM2 (diabetes mellitus, type 2) controlled chronic accucheck with coverage f/u Hgb A1c metformin on hold because of IV contrast 5. S/P BKA (below knee amputation) bilateral Chronic 6. Hypertension, uncontrolled cont vasotec started Metoprolol 7.Constipation Started lactulose 8. DVt prophylaxis Lovenox
[2017-05-19] MEDS: Acyclovir 5% OINT 15 APPLIC/15 GM EXT SCH ×5 (03:42→16:34)
[2017-05-19] MEDS: Piperacill/Tazo 3.375gm in Dex 3.375 GM/50 ML BAG IVPB SCH ×3 (03:44→16:35)
[2017-05-19 06:52] LABS: HEMOGLOBIN 10.7 g/dL (12.0-18.0); MEAN CELL VOLUME 83.7 fl (80.0-94.0); MEAN CORPUSCULAR HEMOGLOBIN 27.9 pg (27.0-31.0); MEAN CORPUSCULAR HGB CONC 33.3 g/dL (33.0-37.0); RBC 3.85 Mil/uL (4.40-5.90); RED CELL DISTRIBUTION WIDTH 13.8 % (11.5-14.5); WHITE BLOOD COUNT 8.5 K/uL (4.8-10.8)
[2017-05-19] MEDS: Insulin Lispro (humaLOG) 100 Units/ml Inj SC SCH ×3 (06:57→16:36)
[2017-05-19 07:26] LABS: ALB/GLOB RATIO 0.9 (1.0-2.1); ALBUMIN 3.4 g/dL (3.5-5.0); ALT/SGPT 21 U/L (21-72); AST/SGOT 23 U/L (17-59); BLOOD UREA NITROGEN 15 mg/dl (9-20); CALCIUM 8.8 mg/dL (8.4-10.2); GFR AFRICAN-AMERICAN > 60; GFR NON-AFRICAN AMERICAN > 60
[2017-05-19 08:51] VITALS: RESP 18
[2017-05-19] MEDS ORDERED: Enoxaparin 40 mg Syringe SC SCH (09:00)
[2017-05-19] MEDS: Metoprolol Succinate 50 mg XL Tab PO SCH (09:15)
--- NOTE | 2017-05-19 11:09 | CP.PCM.PN ---
Subjective - Date & Time of Evaluation Date of Evaluation: 05/19/17 Time of Evaluation: 11:09 - Subjective Subjective: ID Note- Pt. seen and examined today. Pt. denies any fever or chills. no new lesions. pt. only c/o itching of the now dried lesions on his left lip and nose. spoke with and as per her she spoke with ENT doc and no surgical intervention as per ENT . Objective - Vital Signs/Intake and Output Vital Signs (last 24 hours): Temp Pulse Resp BP Pulse Ox 98.7 F 80 18 133/76 98 05/19/17 08:00 05/19/17 09:15 05/19/17 08:00 05/19/17 09:15 05/19/17 08:00 - Medications Medications: Current Medications Acetaminophen (Tylenol 325mg Tab) 650 mg PO Q6 PRN PRN Reason: Pain, Mild (1-3) Acetaminophen (Tylenol 325mg Tab) 650 mg PO Q6 PRN PRN Reason: Fever >100.4 F Acyclovir (Zovirax) 800 mg PO Q8 [facility] Last Admin: 05/19/17 09:17 Dose: 800 mg Acyclovir (Zovirax 5% Oint) 1 applic EXT Q3 [facility] Last Admin: 05/19/17 09:16 Dose: 1 applic Aspirin (Ecotrin) 81 mg PO DAILY [facility] Last Admin: 05/19/17 09:17 Dose: 81 mg Enalapril Maleate (Vasotec) 20 mg PO BID [facility] Last Admin: 05/19/17 09:16 Dose: 20 mg Enoxaparin Sodium (Lovenox) 40 mg SC DAILY [facility] PRN Reason: Protocol Last Admin: 05/19/17 09:18 Dose: 40 mg Escitalopram Oxalate (Lexapro) 10 mg PO DAILY [facility] Last Admin: 05/19/17 09:17 Dose: 10 mg Vancomycin HCl 1 gm/ Sodium (Chloride) 250 mls @ 166.667 mls/hr IVPB Q12 [facility] Last Admin: 05/19/17 10:29 Dose: 166.667 mls/hr Piperacillin Sod/Tazobactam Sod (Zosyn 3.375 Gm Iv Premix) 3.375 gm in 50 mls @ 50 mls/hr IVPB Q6 [facility] Last Admin: 05/19/17 09:19 Dose: 50 mls/hr Insulin Human Lispro (Humalog) 0 units SC ACHS [facility] PRN Reason: Protocol Last Admin: 05/19/17 06:57 Dose: Not Given Lactulose (Enulose) 20 gm PO DAILY PRN PRN Reason: Constipation Metoprolol Succinate (Toprol Xl) 50 mg PO DAILY [facility] Last Admin: 05/19/17 09:15 Dose: 50 mg Oxycodone/Acetaminophen (Percocet 5/325 Mg Tab) 1 tab PO Q4 PRN PRN Reason: Pain, moderate (4-7) Stop: 05/19/17 22:36 Last Admin: 05/17/17 00:28 Dose: 1 tab - Labs Labs: - Additional Findings Additional findings: - Constitutional Appears: No Acute Distress - Head Exam Head Exam: ATRAUMATIC - Eye Exam Eye Exam: EOMI, PERRL - ENT Exam Additional comments: left upper lip and left nostril lesions have all dried and crusted over, no new lesions, no surrounding erythema, no edema, no discharge - Neck Exam Neck exam: Positive for: Full Rom - Respiratory Exam Respiratory Exam: Clear to Auscultation Bilateral, NORMAL BREATHING PATTERN - Cardiovascular Exam Cardiovascular Exam: RRR, +S1, +S2 - GI/Abdominal Exam GI & Abdominal Exam: Normal Bowel Sounds, Soft Additional comments: NT, ND - Extremities Exam Additional comments: b/l BKA - Neurological Exam Neurological exam: Alert, Oriented x 3 Laboratory Results - last 72 hr 05/16/17 05/16/17 05/16/17 21:36 21:40 21:54 WBC 12.9 H D RBC 4.25 L Hgb 11.6 L Hct 35.8 MCV 84.3 MCH 27.3 MCHC 32.4 L RDW 13.9 Plt Count 332 MPV 9.1 Neut % (Auto) 72.4 Lymph % (Auto) 15.5 L [place] % (Auto) 7.6 Eos % (Auto) 3.9 Baso % (Auto) 0.6 Neut # 9.3 H Lymph # 2.0 Menard # 1.0 H Eos # 0.5 Baso # 0.1 PT INR APTT pO2 52 VBG pH 7.43 VBG pCO2 39 L VBG HCO3 25.8 VBG Total CO2 27.1 VBG O2 Sat (Calc) 92.1 H VBG Base Excess 1.5 VBG Potassium 4.8 Sodium 136.0 Chloride 104.0 Glucose 180 H Lactate 2.3 H FiO2 21.0 Potassium Carbon Dioxide Anion Gap BUN Creatinine Est GFR ( Amer) Est GFR (Non-Af Amer) POC Glucose (mg/dL) 178 H Random Glucose Hemoglobin A1c Lactic Acid Calcium Phosphorus Magnesium Total Bilirubin AST ALT Alkaline Phosphatase Troponin I Total Protein Albumin Globulin Albumin/Globulin Ratio Venous Blood Potassium 4.8 Urine Color Urine Clarity Urine pH Ur Specific [place] Urine Protein Urine Glucose (UA) Urine Ketones Urine Blood Urine Nitrate Urine Bilirubin Urine Urobilinogen Ur Leukocyte Esterase Urine RBC (Auto) Urine Microscopic WBC Ur Squamous Epith Cells Urine Bacteria Hyaline Casts Urine Opiates Screen Urine Methadone Screen Ur Barbiturates Screen Ur Phencyclidine Scrn Ur Amphetamines Screen U Benzodiazepines Scrn U Oth Cocaine Metabols U Cannabinoids Screen RPR HIV 1&2 Antibody Screen 05/16/17 05/16/17 05/16/17 21:54 21:54 23:02 WBC RBC Hgb Hct MCV MCH MCHC RDW Plt Count MPV Neut % (Auto) Lymph % (Auto) [place] % (Auto) Eos % (Auto) Baso % (Auto) Neut # Lymph # [place] # Eos # Baso # PT 12.0 INR 1.1 APTT 35.5 pO2 VBG pH VBG pCO2 VBG HCO3 VBG Total CO2 VBG O2 Sat (Calc) VBG Base Excess VBG Potassium Sodium 138 Chloride 104 Glucose Lactate FiO2 Potassium 4.8 Carbon Dioxide 23 Anion Gap 16 BUN 16 Creatinine 0.8 Est GFR ( Amer) > 60 Est GFR (Non-Af Amer) > 60 POC Glucose (mg/dL) Random Glucose 178 H Hemoglobin A1c Lactic Acid Calcium 9.5 Phosphorus 3.3 Magnesium 1.7 Total Bilirubin 0.2 AST 17 D ALT 17 L D Alkaline Phosphatase 115 Troponin I < 0.0120 Total Protein 8.4 H Albumin 3.9 Globulin 4.4 H Albumin/Globulin Ratio 0.9 L Venous Blood Potassium Urine Color Yellow Urine Clarity Cloudy Urine pH 6.0 Ur Specific [place] 1.014 Urine Protein 100 Urine Glucose (UA) Neg Urine Ketones Negative Urine Blood Small Urine Nitrate Negative Urine Bilirubin Negative Urine Urobilinogen 0.2-1.0 Ur Leukocyte Esterase Large Urine RBC (Auto) 8 H Urine Microscopic WBC 159 H Ur Squamous Epith Cells < 1 Urine Bacteria Mod H Hyaline Casts 0-2 Urine Opiates Screen Urine Methadone Screen Ur Barbiturates Screen Ur Phencyclidine Scrn Ur Amphetamines Screen U Benzodiazepines Scrn U Oth Cocaine Metabols U Cannabinoids Screen RPR HIV 1&2 Antibody Screen 05/17/17 05/17/17 05/17/17 01:38 05:29 08:30 WBC 10.3 RBC 3.91 L Hgb 11.0 L Hct 32.7 L MCV 83.7 MCH 28.3 MCHC 33.8 RDW 13.6 Plt Count 309 MPV Neut % (Auto) Lymph % (Auto) [place] % (Auto) Eos % (Auto) Baso % (Auto) Neut # Lymph # [place] # Eos # Baso # PT INR APTT pO2 VBG pH VBG pCO2 VBG HCO3 VBG Total CO2 VBG O2 Sat (Calc) VBG Base Excess VBG Potassium Sodium Chloride Glucose Lactate FiO2 Potassium Carbon Dioxide Anion Gap BUN Creatinine Est GFR ( Amer) Est GFR (Non-Af Amer) POC Glucose (mg/dL) 119 H Random Glucose Hemoglobin A1c Lactic Acid 1.9 Calcium Phosphorus Magnesium Total Bilirubin AST ALT Alkaline Phosphatase Troponin I Total Protein Albumin Globulin Albumin/Globulin Ratio Venous Blood Potassium Urine Color Urine Clarity Urine pH Ur Specific [place] Urine Protein Urine Glucose (UA) Urine Ketones Urine Blood Urine Nitrate Urine Bilirubin Urine Urobilinogen Ur Leukocyte Esterase Urine RBC (Auto) Urine Microscopic WBC Ur Squamous Epith Cells Urine Bacteria Hyaline Casts Urine Opiates Screen Urine Methadone Screen Ur Barbiturates Screen Ur Phencyclidine Scrn Ur Amphetamines Screen U Benzodiazepines Scrn U Oth Cocaine Metabols U Cannabinoids Screen RPR HIV 1&2 Antibody Screen 05/17/17 05/17/17 05/17/17 08:30 08:30 10:00 WBC RBC Hgb Hct MCV MCH MCHC RDW Plt Count MPV Neut % (Auto) Lymph % (Auto) [place] % (Auto) Eos % (Auto) Baso % (Auto) Neut # Lymph # [place] # Eos # Baso # PT INR APTT pO2 VBG pH VBG pCO2 VBG HCO3 VBG Total CO2 VBG O2 Sat (Calc) VBG Base Excess VBG Potassium Sodium 139 Chloride 104 Glucose Lactate FiO2 Potassium 4.6 Carbon Dioxide 26 Anion Gap 14 BUN 13 Creatinine 0.7 L Est GFR ( Amer) > 60 Est GFR (Non-Af Amer) > 60 POC Glucose (mg/dL) Random Glucose 126 H Hemoglobin A1c 10.1 H D Lactic Acid Calcium 9.3 Phosphorus Magnesium Total Bilirubin AST ALT Alkaline Phosphatase Troponin I Total Protein Albumin Globulin Albumin/Globulin Ratio Venous Blood Potassium Urine Color Urine Clarity Urine pH Ur Specific [place] Urine Protein Urine Glucose (UA) Urine Ketones Urine Blood Urine Nitrate Urine Bilirubin Urine Urobilinogen Ur Leukocyte Esterase Urine RBC (Auto) Urine Microscopic WBC Ur Squamous Epith Cells Urine Bacteria Hyaline Casts Urine Opiates Screen Positive H Urine Methadone Screen Negative Ur Barbiturates Screen Negative Ur Phencyclidine Scrn Negative Ur Amphetamines Screen Negative U Benzodiazepines Scrn Negative U Oth Cocaine Metabols Negative U Cannabinoids Screen Negative RPR HIV 1&2 Antibody Screen 05/17/17 05/17/17 05/17/17 11:14 11:30 11:30 WBC RBC Hgb Hct MCV MCH MCHC RDW Plt Count MPV Neut % (Auto) Lymph % (Auto) [place] % (Auto) Eos % (Auto) Baso % (Auto) Neut # Lymph # [place] # Eos # Baso # PT INR APTT pO2 VBG pH VBG pCO2 VBG HCO3 VBG Total CO2 VBG O2 Sat (Calc) VBG Base Excess VBG Potassium Sodium Chloride Glucose Lactate FiO2 Potassium Carbon Dioxide Anion Gap BUN Creatinine Est GFR ( Amer) Est GFR (Non-Af Amer) POC Glucose (mg/dL) 143 H Random Glucose Hemoglobin A1c Lactic Acid Calcium Phosphorus Magnesium Total Bilirubin AST ALT Alkaline Phosphatase Troponin I Total Protein Albumin Globulin Albumin/Globulin Ratio Venous Blood Potassium Urine Color Urine Clarity Urine pH Ur Specific [place] Urine Protein Urine Glucose (UA) Urine Ketones Urine Blood Urine Nitrate Urine Bilirubin Urine Urobilinogen Ur Leukocyte Esterase Urine RBC (Auto) Urine Microscopic WBC Ur Squamous Epith Cells Urine Bacteria Hyaline Casts Urine Opiates Screen Urine Methadone Screen Ur Barbiturates Screen Ur Phencyclidine Scrn Ur Amphetamines Screen U Benzodiazepines Scrn U Oth Cocaine Metabols U Cannabinoids Screen RPR Nonreactive HIV 1&2 Antibody Screen Negative 05/17/17 05/17/17 05/18/17 16:00 21:10 04:52 WBC RBC Hgb Hct MCV MCH MCHC RDW Plt Count MPV Neut % (Auto) Lymph % (Auto) [place] % (Auto) Eos % (Auto) Baso % (Auto) Neut # Lymph # [place] # Eos # Baso # PT INR APTT pO2 VBG pH VBG pCO2 VBG HCO3 VBG Total CO2 VBG O2 Sat (Calc) VBG Base Excess VBG Potassium Sodium Chloride Glucose Lactate FiO2 Potassium Carbon Dioxide Anion Gap BUN Creatinine Est GFR ( Amer) Est GFR (Non-Af Amer) POC Glucose (mg/dL) 111 H 121 H 126 H Random Glucose Hemoglobin A1c Lactic Acid Calcium Phosphorus Magnesium Total Bilirubin AST ALT Alkaline Phosphatase Troponin I Total Protein Albumin Globulin Albumin/Globulin Ratio Venous Blood Potassium Urine Color Urine Clarity Urine pH Ur Specific [place] Urine Protein Urine Glucose (UA) Urine Ketones Urine Blood Urine Nitrate Urine Bilirubin Urine Urobilinogen Ur Leukocyte Esterase Urine RBC (Auto) Urine Microscopic WBC Ur Squamous Epith Cells Urine Bacteria Hyaline Casts Urine Opiates Screen Urine Methadone Screen Ur Barbiturates Screen Ur Phencyclidine Scrn Ur Amphetamines Screen U Benzodiazepines Scrn U Oth Cocaine Metabols U Cannabinoids Screen RPR HIV 1&2 Antibody Screen 05/18/17 05/18/17 05/18/17 11:25 15:39 21:18 WBC RBC Hgb Hct MCV MCH MCHC RDW Plt Count MPV Neut % (Auto) Lymph % (Auto) [place] % (Auto) Eos % (Auto) Baso % (Auto) Neut # Lymph # [place] # Eos # Baso # PT INR APTT pO2 VBG pH VBG pCO2 VBG HCO3 VBG Total CO2 VBG O2 Sat (Calc) VBG Base Excess VBG Potassium Sodium Chloride Glucose Lactate FiO2 Potassium Carbon Dioxide Anion Gap BUN Creatinine Est GFR ( Amer) Est GFR (Non-Af Amer) POC Glucose (mg/dL) 207 H 106 197 H Random Glucose Hemoglobin A1c Lactic Acid Calcium Phosphorus Magnesium Total Bilirubin AST ALT Alkaline Phosphatase Troponin I Total Protein Albumin Globulin Albumin/Globulin Ratio Venous Blood Potassium Urine Color Urine Clarity Urine pH Ur Specific [place] Urine Protein Urine Glucose (UA) Urine Ketones Urine Blood Urine Nitrate Urine Bilirubin Urine Urobilinogen Ur Leukocyte Esterase Urine RBC (Auto) Urine Microscopic WBC Ur Squamous Epith Cells Urine Bacteria Hyaline Casts Urine Opiates Screen Urine Methadone Screen Ur Barbiturates Screen Ur Phencyclidine Scrn Ur Amphetamines Screen U Benzodiazepines Scrn U Oth Cocaine Metabols U Cannabinoids Screen RPR HIV 1&2 Antibody Screen 05/19/17 05/19/17 05/19/17 05:00 05:55 05:55 WBC 8.5 RBC 3.85 L Hgb 10.7 L Hct 32.2 L MCV 83.7 MCH 27.9 MCHC 33.3 RDW 13.8 Plt Count 291 MPV Neut % (Auto) Lymph % (Auto) [place] % (Auto) Eos % (Auto) Baso % (Auto) Neut # Lymph # [place] # Eos # Baso # PT INR APTT pO2 VBG pH VBG pCO2 VBG HCO3 VBG Total CO2 VBG O2 Sat (Calc) VBG Base Excess VBG Potassium Sodium 139 Chloride 105 Glucose Lactate FiO2 Potassium 4.0 Carbon Dioxide 27 Anion Gap 11 BUN 15 Creatinine 0.9 Est GFR ( Amer) > 60 Est GFR (Non-Af Amer) > 60 POC Glucose (mg/dL) 129 H Random Glucose 123 H Hemoglobin A1c Lactic Acid Calcium 8.8 Phosphorus Magnesium Total Bilirubin 0.2 AST 23 ALT 21 D Alkaline Phosphatase 87 Troponin I Total Protein 7.4 Albumin 3.4 L Globulin 4.0 H Albumin/Globulin Ratio 0.9 L Venous Blood Potassium Urine Color Urine Clarity Urine pH Ur Specific [place] Urine Protein Urine Glucose (UA) Urine Ketones Urine Blood Urine Nitrate Urine Bilirubin Urine Urobilinogen Ur Leukocyte Esterase Urine RBC (Auto) Urine Microscopic WBC Ur Squamous Epith Cells Urine Bacteria Hyaline Casts Urine Opiates Screen Urine Methadone Screen Ur Barbiturates Screen Ur Phencyclidine Scrn Ur Amphetamines Screen U Benzodiazepines Scrn U Oth Cocaine Metabols U Cannabinoids Screen RPR HIV 1&2 Antibody Screen 05/19/17 11:29 WBC RBC Hgb Hct MCV MCH MCHC RDW Plt Count MPV Neut % (Auto) Lymph % (Auto) [place] % (Auto) Eos % (Auto) Baso % (Auto) Neut # Lymph # [place] # Eos # Baso # PT INR APTT pO2 VBG pH VBG pCO2 VBG HCO3 VBG Total CO2 VBG O2 Sat (Calc) VBG Base Excess VBG Potassium Sodium Chloride Glucose Lactate FiO2 Potassium Carbon Dioxide Anion Gap BUN Creatinine Est GFR ( Amer) Est GFR (Non-Af Amer) POC Glucose (mg/dL) 310 H Random Glucose Hemoglobin A1c Lactic Acid Calcium Phosphorus Magnesium Total Bilirubin AST ALT Alkaline Phosphatase Troponin I Total Protein Albumin Globulin Albumin/Globulin Ratio Venous Blood Potassium Urine Color Urine Clarity Urine pH Ur Specific [place] Urine Protein Urine Glucose (UA) Urine Ketones Urine Blood Urine Nitrate Urine Bilirubin Urine Urobilinogen Ur Leukocyte Esterase Urine RBC (Auto) Urine Microscopic WBC Ur Squamous Epith Cells Urine Bacteria Hyaline Casts Urine Opiates Screen Urine Methadone Screen Ur Barbiturates Screen Ur Phencyclidine Scrn Ur Amphetamines Screen U Benzodiazepines Scrn U Oth Cocaine Metabols U Cannabinoids Screen RPR HIV 1&2 Antibody Screen Microbiology 05/16/17 21:35 Blood Blood Culture - Preliminary NO GROWTH AFTER 48 HOURS 05/16/17 21:51 Blood Blood Culture - Preliminary NO GROWTH AFTER 48 HOURS 05/16/17 23:02 Urine Urine Culture - Final MULTIPLE SPECIES. SUGGEST REPEAT SPECIMEN. Assessment and Plan (1) Facial cellulitis Status: Acute (2) Ulcer of nose Status: Acute (3) DM2 (diabetes mellitus, type 2) Status: Chronic (4) Eczema herpeticum Status: Acute - Assessment and Plan (Free Text) Assessment: A/P- 51 year old male with DM II, HTN presents with left facial cellulits and vesicular lesion of the left lip and nose region with left nostril cartilage erosion . clinically improved. all the lesions have crusted and dried no new lesions afebrile normal wbc count blood cx- neg x [address] report noted- report as per radiologist- There is localized cellulitis involving the soft tissues of medial premaxillary region on more so on the left with what may represent small localized early organizing phlegmon. No definitive drainable fluid collections or subcutaneous emphysema. No bony destructive changes. plan- has been on IV vanco and zosyn for past 3 dasy for treatment of the overlying cellulitis in this diabetic patient. also has been on oral acyclovir and zovirax ointment fot he underlying herpetic labialis and eczema.. advise pt. to avoid touching and scratching his lip and nose. advise to f/u official ENT eval and if no bx recommended by ENT then pt. can be d/c home on oral acyclovir and Oral antibiotic such as eithe bactrim DS BID or clindamycin 600 mg q8 hours for another 10 days. Pt. MUST f/u with primary doc and ENT as outpatient to make sure the lesions are all resolved and if possibly he may need reconstructiev surgery for the left nasal cartilage. patient verbalizes full understanding of all above. all above also d/w [email or web address].[email or web address] at length.
--- NOTE | 2017-05-19 14:28 | CP.PCM.DIS ---
Provider - Provider Date of Admission: 05/16/17 22:28 Attending physician: Berna French MD Primary care physician: None Consults: ID consult ENT consult Time Spent in preparation of Discharge (in minutes): 20 Hospital Course - Lab Results Lab Results: Micro Results 05/16/17 23:02 Urine Urine Culture - Final MULTIPLE SPECIES. SUGGEST REPEAT SPECIMEN. Most Recent Lab Values WBC 8.5 K/uL (4.8-10.8) 05/19/17 05:55 RBC 3.85 Mil/uL (4.40-5.90) L 05/19/17 05:55 Hgb 10.7 g/dL (12.0-18.0) L 05/19/17 05:55 Hct 32.2 % (35.0-51.0) L 05/19/17 05:55 MCV 83.7 fl (80.0-94.0) 05/19/17 05:55 MCH 27.9 pg (27.0-31.0) 05/19/17 05:55 MCHC 33.3 g/dL (33.0-37.0) 05/19/17 05:55 RDW 13.8 % (11.5-14.5) 05/19/17 05:55 Plt Count 291 K/uL (130-400) 05/19/17 05:55 MPV 9.1 fl (7.2-11.7) 05/16/17 21:54 Neut % (Auto) 72.4 % (50.0-75.0) 05/16/17 21:54 Lymph % (Auto) 15.5 % (20.0-40.0) L 05/16/17 21:54 [place] % (Auto) 7.6 % (0.0-10.0) 05/16/17 21:54 Eos % (Auto) 3.9 % (0.0-4.0) 05/16/17 21:54 Baso % (Auto) 0.6 % (0.0-2.0) 05/16/17 21:54 Neut # 9.3 K/uL (1.8-7.0) H 05/16/17 21:54 Lymph # 2.0 K/uL (1.0-4.3) 05/16/17 21:54 Jewell # 1.0 K/uL (0.0-0.8) H 05/16/17 21:54 Eos # 0.5 K/uL (0.0-0.7) 05/16/17 21:54 Baso # 0.1 K/uL (0.0-0.2) 05/16/17 21:54 PT 12.0 Seconds (9.8-13.1) 05/16/17 21:54 INR 1.1 (0.9-1.2) 05/16/17 21:54 APTT 35.5 Seconds (25.6-37.1) 05/16/17 21:54 pO2 52 mm/Hg (30-55) 05/16/17 21:40 VBG pH 7.43 (7.32-7.43) 05/16/17 21:40 VBG pCO2 39 mmHg (40-60) L 05/16/17 21:40 VBG HCO3 25.8 mmol/L 05/16/17 21:40 VBG Total CO2 27.1 mmol/L (22-28) 05/16/17 21:40 VBG O2 Sat (Calc) 92.1 % (40-65) H 05/16/17 21:40 VBG Base Excess 1.5 mmol/L (0.0-2.0) 05/16/17 21:40 VBG Potassium 4.8 mmol/L (3.6-5.2) 05/16/17 21:40 Sodium 136.0 mmol/L (132-148) 05/16/17 21:40 Chloride 104.0 mmol/L (98-107) 05/16/17 21:40 Glucose 180 mg/dL (75-110) H 05/16/17 21:40 Lactate 2.3 mmol/L (0.7-2.1) H 05/16/17 21:40 FiO2 21.0 % 05/16/17 21:40 Sodium 139 mmol/l (132-148) 05/19/17 05:55 Potassium 4.0 MMOL/L (3.6-5.0) 05/19/17 05:55 Chloride 105 mmol/L (98-107) 05/19/17 05:55 Carbon Dioxide 27 mmol/L (22-30) 05/19/17 05:55 Anion Gap 11 (10-20) 05/19/17 05:55 BUN 15 mg/dl (9-20) 05/19/17 05:55 Creatinine 0.9 mg/dL (0.8-1.5) 05/19/17 05:55 Est GFR ( Amer) > 60 05/19/17 05:55 Est GFR (Non-Af Amer) > 60 05/19/17 05:55 POC Glucose (mg/dL) 310 mg/dL (65-110) H 05/19/17 11:29 Random Glucose 123 mg/dL (75-110) H 05/19/17 05:55 Hemoglobin A1c 10.1 % (4.2-6.5) H D 05/17/17 08:30 Lactic Acid 1.9 MMOL/L (0.7-2.1) 05/17/17 01:38 Calcium 8.8 mg/dL (8.4-10.2) 05/19/17 05:55 Phosphorus 3.3 mg/dl (2.5-4.5) 05/16/17 21:54 Magnesium 1.7 MG/DL (1.6-2.3) 05/16/17 21:54 Total Bilirubin 0.2 mg/dl (0.2-1.3) 05/19/17 05:55 AST 23 U/L (17-59) 05/19/17 05:55 ALT 21 U/L (21-72) D 05/19/17 05:55 Alkaline Phosphatase 87 U/L (38-126) 05/19/17 05:55 Troponin I < 0.0120 ng/mL (0.00-0.120) 05/16/17 21:54 Total Protein 7.4 G/DL (6.3-8.2) 05/19/17 05:55 Albumin 3.4 g/dL (3.5-5.0) L 05/19/17 05:55 Globulin 4.0 gm/dL (2.2-3.9) H 05/19/17 05:55 Albumin/Globulin Ratio 0.9 (1.0-2.1) L 05/19/17 05:55 Venous Blood Potassium 4.8 mmol/L (3.6-5.2) 05/16/17 21:40 Urine Color Yellow (YELLOW) 05/16/17 23:02 Urine Clarity Cloudy (Clear) 05/16/17 23:02 Urine pH 6.0 (5.0-8.0) 05/16/17 23:02 Ur Specific [place] 1.014 (1.003-1.030) 05/16/17 23:02 Urine Protein 100 mg/dL (NEGATIVE) 05/16/17 23:02 Urine Glucose (UA) Neg mg/dL (Normal) 05/16/17 23:02 Urine Ketones Negative mg/dL (NEGATIVE) 05/16/17 23:02 Urine Blood Small (NEGATIVE) 05/16/17 23:02 Urine Nitrate Negative (NEGATIVE) 05/16/17 23:02 Urine Bilirubin Negative (NEGATIVE) 05/16/17 23:02 Urine Urobilinogen 0.2-1.0 mg/dL (0.2-1.0) 05/16/17 23:02 Ur Leukocyte Esterase Large Ian/uL (Negative) 05/16/17 23:02 Urine RBC (Auto) 8 /hpf (0-3) H 05/16/17 23:02 Urine Microscopic WBC 159 /hpf (0-5) H 05/16/17 23:02 Ur Squamous Epith Cells < 1 /hpf (0-5) 05/16/17 23:02 Urine Bacteria Mod (<OCC) H 05/16/17 23:02 Hyaline Casts 0-2 /hpf (0-2) 05/16/17 23:02 Urine Opiates Screen Positive (NEGATIVE) H 05/17/17 10:00 Urine Methadone Screen Negative (NEGATIVE) 05/17/17 10:00 Ur Barbiturates Screen Negative (NEGATIVE) 05/17/17 10:00 Ur Phencyclidine Scrn Negative (NEGATIVE) 05/17/17 10:00 Ur Amphetamines Screen Negative (NEGATIVE) 05/17/17 10:00 U Benzodiazepines Scrn Negative (NEGATIVE) 05/17/17 10:00 U Oth Cocaine Metabols Negative (NEGATIVE) 05/17/17 10:00 U Cannabinoids Screen Negative (NEGATIVE) 05/17/17 10:00 RPR Nonreactive (NONREACTIVE) 05/17/17 11:30 HIV 1&2 Antibody Screen Negative (NEGATIVE) 05/17/17 11:30 - Hospital Course Hospital Course: 51 y/o male with PMH of HTN, DM, s/p bilateral BKA presented with facial and scalp lesion and nasal ulceration that started 2 weeks prior to admission.Patient was noted to have lesions on left side of his face with ulceration and necrosis with facial erythema.He was admitted with diagnosis of sepsis secondary to facial cellulitis and started on IV antibiotics, Zosyn and Vancomycin as well as Zovirax topical ID and ENT was consulted Ct sinuses showed localized cellulitis involving the soft tissues of medial premaxillary region on more so on the left with what may represent small localized early organizing phlegmon. No definitive drainable fluid collections or subcutaneous emphysema. No bony destructive changes. No evidence of acute paranasal sinusitis on. Questionable mild soft tissue swelling of the lower lip right greater than left. Patient clinically improving, erythema resolved and lesions to upper and lower lip crusted.ID recommended continuation of antibiotic therapy with bactrim DS Po and Acyclovir Po for 10 more days Discussed with ENT. nasal lesion very suspicious for malignancy and recommended follow up with plastic and reconstructive surgery for bulky resection , tissue biopsy and reconstruction. We do not have any plastic surgery at our hospital . Called and made appointment with plastic and Reconstructive surgery at [facility] for May 29 at 13.30 at [address] [facility] [address] . Informed both patient and and advised to follow up . Will discharge patient home today with 1. Sepsis , likely sec to facial infection Blood c/s with no growth Pt started and received 3 days of IV Zosyn and Vanco noted that all lesions seem to be on the left side , with nasal ulceration and necrosis, some facial erythema, also noted lip blisters Started Acyclovir Po and zovirax topical Ct sinuses showed no bony distraction, cellulitis ENT eval with Dr. Mclaughlin appreciated . recommended plastic surgery eval for biopsy , resection and reconstruction ID consulted Dr Eric Campos d/c on PO bactrim , Acyclovir for 10 days 2.Herpes labialis with superimposed bacterial infection IV Zosyn and Vanco IV for 3 days --than d/c on PO bactrim DS acyclovir PO and topical Zovirax 3. Ulcer of nose, necrotic Urine TOX- positive for opioate RPR- negative HIV test negative [place].l need to follow up with plastic surgery for tissue diagnosis and treatment as well as reconstruction appointment rovided to patient ENt eval CT of the sinuses as above 4 DM2 (diabetes mellitus, type 2) controlled chronic, uncontrolled accucheck with coverage Hgb A1c 10 Continue metformin po 5. S/P BKA (below knee amputation) bilateral Chronic 6. Hypertension, uncontrolled cont vasotec started Metoprolol 7.Constipation Started lactulose 8. Mild anemia Most likely dilutional 9. UTI UA cloudy with moderate bacteria nad > 150 WBC Received Zosyn IV Will d/c on Po bactrim 8. DVt prophylaxis Lovenox Discharge Exam - Head Exam Head Exam: ATRAUMATIC - Eye Exam Eye Exam: Normal appearance - ENT Exam Additional comments: left nostril erosion upper and lower lip dry lesions no erythema - Neck Exam Neck exam: Full Rom, Normal Inspection - Respiratory Exam Respiratory Exam: Clear to PA & Lateral, NORMAL BREATHING PATTERN. absent: Rales, Rhonchi, Wheezes - Cardiovascular Exam Cardiovascular Exam: REGULAR RHYTHM, RRR, +S1, +S2. absent: JVD - GI/Abdominal Exam GI & Abdominal Exam: Normal Bowel Sounds, Soft. absent: Distended, Rebound, Tenderness - Rectal Exam Rectal Exam: Deferred - Extremities Exam Extremities exam: pedal pulses present Additional comments: bilateral BKA - Back Exam Back exam: NORMAL INSPECTION - Neurological Exam Neurological exam: Alert, CN II-XII Intact, Oriented x3 - Psychiatric Exam Psychiatric exam: Normal Affect - Skin Skin Exam: Dry, Warm Discharge Plan - Discharge Medications Prescriptions: Acyclovir [Zovirax] 800 mg PO Q8 #30 tab Acyclovir 5% [Zovirax 5% Oint] 1 applic EXT Q3 #1 Metoprolol Succinate [Toprol XL] 50 mg PO DAILY #30 tab Sulfamethoxazole/Trimethoprim [Bactrim DS 800 mg-160 mg] 1 tab PO BID #20 tab - Follow Up Plan Condition: GUARDED Disposition: HOME/ ROUTINE Patient education suggested?: Yes Instructions: Cellulitis (DC) Additional Instructions: Activity tolerated, fall precaution, Follow-up w/ Primary Doctor in 2 weeks to call for appointment. Heart healthy, low fat, low cholesterol and moderate consistent carbohydrate diet.Appointment with Plastic and Reconstructive Surgery Unit , [address] [place] [address] [id number] Tel . To pay $70.00
[2017-05-19 15:51] VITALS: BP 137/73; PULSE 83; TEMP 97.8
[2017-05-19 16:44] VITALS: O2SAT 99
--- NOTE | 2017-05-20 08:31 | CON ---
DATE OF CONSULTATION: 05/19/2017 REASON FOR CONSULTATION: Left nasal lesion. REQUESTING PHYSICIAN: Dr. French. HISTORY OF PRESENT ILLNESS: This is a 51-year-old male, who presents with multiple-month history of lesions in the left nose. It is over the left lower lateral cartilage. The patient has no pain. The patient is not a good historian. There is no bleeding. PAST MEDICAL HISTORY: As noted in the chart by me. MEDICATIONS: As noted in the chart by me. PHYSICAL EXAMINATION: HEENT: Head is atraumatic, normocephalic. FACE: Good movements bilaterally. CONSTITUTIONAL: Well developed, well nourished. COMMUNICATION: Communicates appropriately. EXTERNAL EAR: The left lower lateral cartilage is missing. There is a lesion on the borders where the cartilage is missing. There is no bleeding. No redness. NOSE: Deviated septum. no erythema, no edema. NECK: Supple. Thyroid: No thyromegaly. No goiter. LYMPH NODE: No lymphadenopathy of the neck. OROPHARYNX: No masses, no lesions, no erythema, no edema. Lips/gums: No masses, no lesions, no erythema, no edema. ASSESSMENT: 1. Deviated septum. 2. 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 RECOMMENDATION: I don not treat patients with this condition. Recommend plastic surgery consult for biopsy and possible resection and reconstruction. Laurent Mclaughlin MD MTDD
== END 2017-05-19 17:30 | disposition home or self-care (01) | DRG 901 ==
LOC: H.ER 20:23 → H.ERHOLD 22:28 → H.TEL 23:55
PROVIDERS: ADMIT Internal Medicine; ATTEND Internal Medicine
DX: A41.9 Sepsis, unspecified organism (principal); E11.65 Type 2 diabetes mellitus with hyperglycemia; I10 Essential (primary) hypertension; L03.211 Cellulitis of face; N39.0 Urinary tract infection, site not specified; B00.1 Herpesviral vesicular dermatitis; E78.5 Hyperlipidemia, unspecified; Z89.511 Acquired absence of right leg below knee; Z89.512 Acquired absence of left leg below knee; R65.20 Severe sepsis without septic shock; J34.2 Deviated nasal septum; L98.499 Non-pressure chronic ulcer of skin of other sites with unspecified severity; D64.9 Anemia, unspecified; K59.00 Constipation, unspecified